=== PATIENT | male | born 1995 | race African-American/Black ===

== ENCOUNTER 2021-03-01 14:17 | Emergency (ER) | payer OTHER ==
[~2021-03-01] VITALS: Ht 190.5 cm; Wt 82.0 kg
[2021-03-01 14:20] VITALS: BP 133/83
[2021-03-01] MEDS ORDERED: TRAMADOL 50MG TABLET PO ONE (15:45)
[2021-03-01] MEDS ORDERED: ACETAMINOPHEN 325MG TABLET PO ONE (15:45)
== END 2021-03-01 16:43 | disposition home or self-care (01) ==
LOC: ER 14:17
DX: S02.609A Fracture of mandible, unspecified, initial encounter for closed fracture (principal); F17.210 Nicotine dependence, cigarettes, uncomplicated; Z98.890 Other specified postprocedural states; V89.2XXA Person injured in unspecified motor-vehicle accident, traffic, initial encounter; Y93.89 Activity, other specified; Y92.488 Other paved roadways as the place of occurrence of the external cause
CPT/HCPCS: 99281